=== PATIENT | male | born 1950 ===

== ENCOUNTER 2024-03-07 16:34 | Observation (INO) | payer OTHER ==
[~2024-03-07] VITALS: Ht 177.8 cm; Wt 117.7 kg
[2024-03-07 17:13] LABS: BASOPHILS ABSOLUTE AUTO 0.04 K/mm3 (0.00-0.23); BASOPHILS PERCENT AUTO 1 % (0-2); EOSINOPHILS ABSOLUTE AUTO 0.07 K/mm3 (0.00-0.68); EOSINOPHILS PERCENT AUTO 1 % (0-6); Hemoglobin 14.2 g/dL (13.5-17.5); IMMATURE GRAN ABSOLUTE AUTO 0.02 K/mm3 (0.00-0.10); IMMATURE GRAN PERCENT AUTO 0 % (0-1); LYMPHOCYTES ABSOLUTE AUTO 2.62 K/mm3 (0.84-5.20); LYMPHOCYTES PERCENT AUTO 40 % (21-46); MONOCYTES ABSOLUTE AUTO 0.44 K/mm3 (0.16-1.47); MONOCYTES PERCENT AUTO 7 % (4-13); Mean Corpuscular HGB 25.8 pg (26.0-34.0); Mean Corpuscular HGB Conc 32.3 g/dL (31.5-36.5); Mean Corpuscular Volume 80 fL (80-100); Mean Platelet Volume 9.1 fL (9.1-12.4); NEUTROPHILS ABSOLUTE AUTO 3.45 K/mm3 (1.96-9.15); NEUTROPHILS PERCENT AUTO 52 % (41-73); Platelet Count 217 K/mm3 (150-400); RDW Coefficient Variation 16.4 % (11.7-14.2); RDW Standard Deviation 47.6 fL (35.1-46.3); Red Blood Cell Count 5.51 M/mm3 (4.30-5.90); White Blood Cell Count 6.64 K/mm3 (4.00-11.30)
[2024-03-07 17:24] LABS: Albumin, Blood 3.9 g/dL (3.4-5.0); Albumin/Globulin Ratio 1.2 (0.8-1.8); Bilirubin, Total 0.5 mg/dL (0.1-1.0); Bun/Creatinine Ratio 17.5 (12.0-20.0); Calcium, Blood 9.3 mg/dL (8.5-10.1); Creatinine, Blood 1.03 mg/dL (0.60-1.20); Globulin, Blood 3.2 g/dL (2.2-4.0); Potassium, Blood 3.9 mmol/L (3.5-5.5); Total Protein, Blood 7.1 g/dL (6.4-8.2)
[2024-03-07] MEDS ORDERED: Acetaminophen 500 MG Tab PO ONE (18:25)
[2024-03-07] MEDS ORDERED: Ondansetron HCl 2 MG / ML 2ML Vial IV PRN (20:05)
[2024-03-07] MEDS ORDERED: Acetaminophen 325 MG TABLET PO PRN (20:05)
[2024-03-07] MEDS ORDERED: NS 1,000 ML IV SCH (20:05)
[2024-03-07] MEDS ORDERED: NS 1,000 ML IV ONE (21:00)
[2024-03-07] MEDS ORDERED: ATORVASTATIN CA10 M1 PO (21:41)
[2024-03-07] MEDS ORDERED: MELO7.5 PO (21:41)
[2024-03-07] MEDS ORDERED: METO100ER PO (21:41)
[2024-03-07] MEDS ORDERED: OXYC5 PO (21:42)
[2024-03-07] MEDS ORDERED: TRAZ100 PO (21:42)
[2024-03-07] MEDS ORDERED: FUROSEMIDE20 MG PO (21:43)
[2024-03-07] MEDS ORDERED: OMEP20ER PO (21:43)
[2024-03-07 22:12] VITALS: BP 129/95
[2024-03-08 03:45] VITALS: BP 148/80
--- NOTE | 2024-03-08 05:09 | NUR ---
SHIFT SUMMARY NOC ADMIT FROM ED WITH MULTIPLE EPISODES OF SYNCOPE AT HOME AND IN ED. PT HAS NOT REPORTED ANY DIZZYNESS OR FEELINGS OF POSSIBLY PASSING OUT. PT ON TELE SINUS RHTYHM IN 60'S. PT HAS MRI SCHEDULED FOR TODAY. INFUSION OF NS @ 100 ML/HR RUNNING. PT IS AC BLOOD GLUCOSE CHECKS.RX RECONCILED. PT CURRENTLY RESTING WITH BED IN LOWEST POSITION, AND CALL LIGHT WITHIN REACH.
[2024-03-08 05:20] LABS: Hematocrit 43.2 % (37.0-53.0); Hemoglobin 13.7 g/dL (13.5-17.5); Mean Corpuscular HGB 25.8 pg (26.0-34.0); Mean Corpuscular HGB Conc 31.7 g/dL (31.5-36.5); Mean Corpuscular Volume 81 fL (80-100); Mean Platelet Volume 9.4 fL (9.1-12.4); Platelet Count 182 K/mm3 (150-400); RDW Coefficient Variation 16.5 % (11.7-14.2); RDW Standard Deviation 48.5 fL (35.1-46.3); Red Blood Cell Count 5.31 M/mm3 (4.30-5.90); White Blood Cell Count 4.86 K/mm3 (4.00-11.30)
[2024-03-08 05:42] LABS: Bun/Creatinine Ratio 20.7 (12.0-20.0); Creatinine, Blood 0.82 mg/dL (0.60-1.20); Potassium, Blood 3.5 mmol/L (3.5-5.5)
[2024-03-08 07:26] VITALS: BP 150/77
[2024-03-08] MEDS ORDERED: Insulin Human Lispro 100 Units/ML 3ML Syringe SC SCH (07:30)
[2024-03-08] MEDS ORDERED: Enoxaparin 40 MG/0.4 ML SYR SC SCH (09:00)
[2024-03-08] MEDS ORDERED: Aspirin 81 MG Chew PO SCH (09:00)
[2024-03-08] MEDS ORDERED: Tamsulosin HCl 0.4 MG Cap PO SCH (09:00)
[2024-03-08] MEDS ORDERED: Atorvastatin 40 MG Tab PO SCH (09:00)
[2024-03-08] MEDS ORDERED: Diazepam 5 MG Tab PO ONE (11:00)
[2024-03-08 14:50] VITALS: BP 139/74
[2024-03-08] MEDS ORDERED: CLOP75 PO (16:31)
[2024-03-08] MEDS ORDERED: ASPI81CH PO (16:31)
[2024-03-08] MEDS ORDERED: TAMS.4ER PO (16:31)
[2024-03-08] MEDS ORDERED: KLOR-CON 1010 ME9 PO (16:32)
--- NOTE | 2024-03-08 17:16 | NUR ---
PATIENT DISCHARGE: PATIENT DISCHARGED TO HOME THIS SHIFT. MEDICATION RECONCILIATION COMPLETED; MED LIST FAXED TO [facility]. DISCHARGE EDUCATION COMPLETED WITH PATIENT. PATIENT TRANSPORTED TO EXIT BY WHEELCHAIR AT 1710. PATIENT DEPARTED [facility] VIA PRIVATE AUTO.
== END 2024-03-08 17:10 | disposition home or self-care (01) ==
LOC: ER 16:34 → MEDS 16:35
PROVIDERS: Emergency Medicine; Nurse Practitioner Acute Care; ADMIT Internal Medicine
DX: R41.82 Altered mental status, unspecified (principal); E11.9 Type 2 diabetes mellitus without complications; I10 Essential (primary) hypertension; E78.5 Hyperlipidemia, unspecified; N40.0 Benign prostatic hyperplasia without lower urinary tract symptoms; F17.290 Nicotine dependence, other tobacco product, uncomplicated; Z86.73 Personal history of transient ischemic attack (TIA), and cerebral infarction without residual deficits; Z88.0 Allergy status to penicillin; Z88.5 Allergy status to narcotic agent
CPT/HCPCS: 36415; 70450; 70551; 71046; 80048; 80053; 82947; 83735; 83880; 84484; 85025; 85027; 93005; 93010; 95819; 99285-25; A9270; G0378; J1650; J7030